=== PATIENT | male | born 1955 | race Caucasian/White ===

== ENCOUNTER 2021-03-07 05:31 | Day surgery (SDC) | payer MEDICARE, OTHER ==
[2021-02-28 11:45] LABS: BASOPHILS % (AUTO) 0.7 % (0-1); EOSINOPHILS # (AUTO) 0.1 X10'3 (0-0.9); LYMPHOCYTES # (AUTO) 1.6 X10'3 (1.1-4.8); LYMPHOCYTES % (AUTO) 25.9 % (21-51); MEAN CORPUSCULAR HEMOGLOBIN 29.8 PG (27.0-31.0); MEAN CORPUSCULAR VOLUME 87.8 FL (78-98); MEAN PLATELET VOLUME 8.3 FL (7.4-10.4); MONOCYTES # (AUTO) 0.4 X10'3 (0-0.9); MONOCYTES % (AUTO) 6.2 % (2-12); NEUTROPHILS # (AUTO) 4.2 X10'3 (1.8-7.7); NEUTROPHILS % (AUTO) 66.2 % (42-75); PRE OP HEMATOCRIT 46.6 % (42.0-52.0); PRE OP HEMOGLOBIN 15.8 g/dL (14.0-17.9); PRE OP PLATELET COUNT 249 X10'3 (140-440); RED BLOOD COUNT 5.31 X10'6 (4.70-6.10); RED CELL DISTRIBUTION WIDTH 13.7 % (11.5-14.5)
[2021-02-28 11:59] LABS: ALBUMIN 4.1 G/DL (3.4-5.0); ALBUMIN/GLOBULIN RATIO 1.3 (1.1-1.5); ALKALINE PHOSPHATASE 69 IU/L (46-116); BLOOD UREA NITROGEN 14 MG/DL (7-18); BUN/CREATININE RATIO 12.4 (5.4-32.0); CALCIUM 9.6 MG/DL (8.5-10.1); CHLORIDE 107 MMOL/L (99-107); CREATININE 1.13 MG/DL (0.60-1.10); PRE OP ALT 32 U/L (30-65); PRE OP ANION GAP 7 (8-16); PRE OP AST 14 U/L (10-37); PRE OP BILIRUB, TOTAL 0.5 MG/DL (0.0-1.0); PRE OP GLUCOSE 99 MG/DL (70-104); PRE OP POTASSIUM 4.3 MMOL/L (3.4-5.1); PRE OP SODIUM 145 MMOL/L (135-145); TOTAL CARBON DIOXIDE 30.7 MMOL/L (24-32); TOTAL PROTEIN 7.2 G/DL (6.4-8.2); eGFR 65 ML/MIN
[2021-03-07] VITALS (10 sets, daily range): BP systolic 116–128; BP diastolic 69–86
[~2021-03-07] VITALS: Ht 182.9 cm; Wt 90.0 kg
[~2021-03-07 05:31] MED LIST: ACET600C PO; ASCO-157 PO; CHOL100025 PO; LACT1CAP75 PO; cefazolin/dext.iso 2gm/50ml IV ONE; famotidine 20mg tablet PO ONE; ringers solution, lacted 1,000 ML IV SCH
[2021-03-07] MEDS ORDERED: LIDOcaine 0.5% W/epiNEPHrine 1:200,000 50ml vial IJ ONE (06:23)
[2021-03-07] MEDS ORDERED: BUPIVAcaine 0.5% inj/PF 30 ML ONE ×2 (06:23→06:53)
[2021-03-07] MEDS ORDERED: ketorolac trometh. 30mg/ml inj. ONE (06:23)
[2021-03-07] MEDS ORDERED: LIDOcaine 1% 30ml preserv. free vial ONE ×3 (06:25→07:08)
[2021-03-07] MEDS ORDERED: MIDAZolam 1 MG/ML 5ML VIAL ONE (07:08)
[2021-03-07] MEDS ORDERED: epiNEPHrine 1 mg/ml inj ONE (07:08)
[2021-03-07] MEDS ORDERED: hydrALAZINE 20mg/ml inj. IV PRN (07:45)
[2021-03-07] MEDS ORDERED: fentaNYL/PF 50MCG/1 ML 2ML syringe IV PRN ×2 (07:45)
[2021-03-07] MEDS ORDERED: labetalol 20mg/4ml (5mg/ml) syringe IV PRN (07:45)
[2021-03-07] MEDS ORDERED: morphine 2 MG/ML inj. syringe IV PRN (07:45)
[2021-03-07] MEDS ORDERED: ringers solution, lacted 1,000 ML IV SCH (07:45)
[2021-03-07] MEDS ORDERED: morphine 4 MG/ML inj SYRINge IV PRN (07:45)
[2021-03-07] MEDS ORDERED: ondansetron/PF 4mg/2ml inj IV PRN (07:45)
--- NOTE | 2021-03-07 08:08 | NUR ---
Received from OR via , accompanied by Anesthesiologist DR DA SILVA and report given by Anesthesiolgist. PT PRESENTS WITH 20G RIGHT WRIST, LEFT KNEE DRESING DRY AND INTACT, VSS Addendum: 03/07/21 at 0939 by Darlyn Miller RN, RN Amended: Links added.
[2021-03-07] MEDS ORDERED: HYDROcodone/acetaminophen 10/325mg tab PO PRN (08:10)
--- NOTE | 2021-03-07 09:28 | NUR ---
PT HAS MET ALL DC REQUIREMENTS. DC IV CANULA INTACT. DC INSTURUCTIONS REVIEWED WITH PT, PT VERBALIZED UNDERSTANDING WITH NO FURTHER QUESTIONS AT THIS TIME. PT TAKEN OUT IN A WHEELCHAIR WHERE WAS WAITING IN CARE TO TAKE PT HOME. Addendum: 03/07/21 at 0937 by Darlyn Miller RN, RN Amended: Links added.
== END 2021-03-07 09:39 | disposition home or self-care (01) ==
LOC: PAS 05:31
PROVIDERS: ATTEND Orthopaedic Surgery
DX: S83.232A Complex tear of medial meniscus, current injury, left knee, initial encounter (principal); M94.262 Chondromalacia, left knee; Z79.899 Other long term (current) drug therapy; Z20.822 Contact with and (suspected) exposure to COVID-19; Z88.8 Allergy status to other drugs, medicaments and biological substances; Z98.890 Other specified postprocedural states; X58.XXXA Exposure to other specified factors, initial encounter; Y93.89 Activity, other specified; Y92.89 Other specified places as the place of occurrence of the external cause; Y99.8 Other external cause status
CPT/HCPCS: 29881; 36415; 80053; 82948; 85025; 93005; J0171; J0690; J1885; J2250; J3490; J7120; S0020; U0003; U0005; Z7506; Z7508; Z7512; A4215; A4618; A6449; A7000